=== PATIENT | female | born 2005 | race Caucasian/White ===

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

== ENCOUNTER 2024-01-02 12:20 | Emergency (ER) | payer SELFPAY ==
[2024-01-02 12:25] VITALS: BP 128/77; PULSE 83; RESP 17; TEMP 36.6; O2SAT 100; BMI 20.9
--- NOTE | 2024-01-02 12:32 | ED_ITS ---
HPI - Back Pain/Injury 2 General: Chief Complaint: Back Pain/Injury Stated Complaint: back pain Time Seen by Provider: 01/02/24 12:21 Source: patient Mode of arrival: ambulatory Limitations: no limitations History of Present Illness: Patient is a 18-year-old female presents to ED today believing she may have pulled a muscle to the right side of her back. 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 She states she worked on Tuesday and began noticing symptoms the following day on Tuesday. She states she has iced the area as well as applied heat and anti-inflammatories. She feels like pain is worse with movement and deep inhalation. She states she recently did have a URI but feels like she has fully recovered from that and is no longer having a cough. She has no chest pain or shortness of breath. She is not having any urinary symptoms. No abdominal pain. She arrives in no acute distress with stable vital signs. MD elicited complaint: back pain Onset (ago): day(s) Timing: constant Severity: moderate Similar Symptoms Previously: No Location: right upper back Radiation: none Exacerbating factors: movement and deep breaths Relieving factors: none Associated symptoms: Deny abdominal pain, dysuria, fever(s), nausea, syncope, urinary urgency or vomiting Treatments prior to arrival: cold therapy, heat therapy and NSAIDS Work related injury: No Related Data Home Medications Medication Instructions Recorded Confirmed ibuprofen 200 mg tablet (Advil) 200 mg PO Q6H PRN Pain 01/02/24 01/02/24 naproxen sodium 220 mg tablet 220 mg PO BID PRN Pain 01/02/24 01/02/24 (Aleve) Previous Rx's Medication Instructions Recorded cyclobenzaprine 10 mg tablet 10 mg PO TID #14 tabs 01/02/24 Allergies Allergy/AdvReac Type Severity Reaction Status Date / Time No Known Allergies Allergy Verified 06/18/20 14:39 Review of Systems 2 Const: Denies: fever(s) Card: Denies: chest pain, palpitations, irregular heart rhythm, edema, swelling of feet/ankles, lightheadedness, syncope, pre-syncope, dyspnea on exertion, orthopnea, leg pain with exertion or acrocyanosis Resp: Reports: pain on inspiration; Denies: dyspnea, wheezing, hemoptysis or chest congestion GI: Denies: abdominal pain, nausea, vomiting or diarrhea : Denies: flank pain, difficulty voiding, dysuria, urinary frequency, urinary urgency or urinary hesitancy Musc: Reports: back pain; Denies: neck pain, extremity pain, extremity swelling, joint pain or joint swelling Skin/Breast: Denies: rash Neuro: Denies: headache(s), numbness in extremities, weakness in extremities, sensory changes or dizziness PFSH ED 2 PFSH: Family History Mother Cervical cancer Grandmother Cancer Paternal--lung cancer Thyroid disease Paternal Denies family history of Diabetes Ovarian cyst CAD (coronary artery disease) Clotting disorder Heart disease Hyperlipidemia Chronic kidney disease (CKD) Anesthesia complication Bleeding disorder Hypertension Stroke Social History Substance/Drug Use: never Physical Exam 2 Const: COMMON NORMALS: no acute distress, average body habitus, patient oriented x3, no limitations, healthy appearing, alert and well nourished G ENERAL APPEARANCE: cooperative Neck/C-Spine: COMMON NORMALS: full ROM Chest: COMMONS NORMALS: normal inspection of the chest and normal palpation of entire chest wall Resp: COMMON NORMALS: normal respiratory effort and clear to auscultation bilaterally AUSCULTATION: clear to auscultation bilaterally Cardio: COMMON NORMALS: regular rate and regular rhythm RATE: regular rate RHYTHM: regular rhythm GI: COMMON NORMALS: Normal to inspection, nondistended, normoactive bowel sounds present, Soft to palpation and non-tender PALPATION: Yes Soft to palpation : COMMON NORMALS: Yes no CVA tenderness BLADDER/KIDNEY EXAM: Yes no CVA tenderness Back/Pelvis: COMMON NORMALS: no CVA tenderness, thoracic and lumbar spine normal to inspection, no thoracic nor lumbar tenderness, thoraco-lumbar ROM normal and straight leg raise negative bilaterally PELVIS: Yes buttocks normal and No sciatic notch tenderness SACRUM: no tenderness COCCYX: no tenderness BACK IMAGE (FEMALE): 1. TTP Extremity: GENERAL: Yes normal exam except as noted Neuro: COMMON NORMALS: patient oriented x3 SENSORIUM/ORIENTATION: Yes alert Skin: COMMON NORMALS: no rashes or lesions noted GENERAL SKIN EXAM: no rashes or lesions noted Course 2 Vital Signs: Vital signs: Vital Signs Temperature 97.8 F 01/02/24 12:25 Pulse Rate 83 01/02/24 12:25 Respiratory Rate 17 01/02/24 12:25 Blood Pressure 128/77 01/02/24 12:25 Pulse Oximetry 100 01/02/24 12:25 Oxygen Delivery Me thod Room Air 01/02/24 12:25 MDM - Back Pain/Injury Medical Decision Making CXR and UA ordered to rule out other pathologies for her right sided back pain. These are unremarkable. Vital signs are stable. Patient will be treated with anti-inflammatories, ice/heat, and muscle relaxers. Return to ED precautions given. Otherwise she can follow-up with primary care. Medical Records I reviewed the patient's medical records. Labs I reviewed the patient's lab results. Radiology Impressions Chest X-Ray 01/02/24 12:40 IMPRESSION: Unremarkable portable chest. Laboratory Results Urine Color Yellow (Yellow) 01/02/24 13:28 Urine Appearance Clear (CLEAR) 01/02/24 13:28 Urine pH 6.0 (5-7) 01/02/24 13:28 Ur Specific [place] 1.035 (1.005-1.030) H 01/02/24 13:28 Urine Protein Negative (Negative) 01/02/24 13:28 Urine Glucose (UA) Negative (Normal) 01/02/24 13:28 Urine Ketones Negative (Negative) 01/02/24 13:28 Urine Blood Negative (Negative) 01/02/24 13:28 Urine Nitrate Negative (Negative) 01/02/24 13:28 Urine Bilirubin Negative (Negative) 01/02/24 13:28 Urine Urobilinogen 1.0 mg/dL (Negative) 01/02/24 13:28 Ur Leukocyte Esterase Negative (Negative) 01/02/24 13:28 Urine RBC 0-2 /hpf (0-2) 01/02/24 13:28 Urine WBC 0-5 /hpf (0-5) 01/02/24 13:28 Ur Squamous Epith Cells 0-5 /hpf (0-5) 01/02/24 13:28 Amorphous Sediment Not Reportable 01/02/24 13:28 Urine Bacteria None seen /hpf (NONE) 01/02/24 13:28 Hyaline Casts 0.81 /lpf 01/02/24 13:28 All radiology interpretation(s) finalized by discharge Discharge Plan Discharge Patient Disposition: Home Clinical Impression: Musculoskeletal back pain Condition: Stable Prescriptions: New cyclobenzaprine 10 mg tablet 10 mg PO TID Qty: 14 0RF No Action naproxen sodium [Aleve] 220 mg Tablet 220 mg PO BID PRN (Reason: Pain) ibuprofen [Advil] 200 mg Tablet 200 mg PO Q6H PRN (Reason: Pain) Discharge Orders: Discharge ED (Routine); Ordered 01/02/24 Ordered By: Evelin Jackson Patient Instructions: Thoracic Back Strain (ED) Activity Restrictions/Additional Instructions: As we discussed, you may continue to alternate ice and heat to the affected area as well as continue [id number] anti-inflammatory medication. You may take these along with Tylenol. You may take the muscle relaxers as needed. Please follow-up with your primary care provider in 1 to 2 weeks if symptoms do not seem to be improving. You may return to the emergency department at anytime for any worsening or concerning symptoms you may have. I hope you begin to feel better soon. Coding Level of Care Code ED Dial Brusher for Shaheen Cote
--- NOTE | 2024-01-02 12:40 | XR_ITS ---
WS: [id number] PORTABLE CHEST HISTORY: R back pain COMPARISON: None available. Foreign body artifacts project over the central lungs. Lungs are clear and well expanded. No pleural effusion or pneumothorax. Cardiac size: Normal. Mediastinum/Aorta: Normal mediastinum. No osseous abnormality seen. XR/XR chest 1V portable [id number] IMPRESSION: Unremarkable portable chest.
[2024-01-02] MEDS: orphenadrine 30 mg/mL Inj 2 mL 60 MG IM (13:42)
[2024-01-02] MEDS: ketorolac 60 mg/2 mL INJ IM (13:43)
[2024-01-02 13:48] LABS: Bilirubin Urine Negative (Negative); Blood Urine Negative (Negative); Glucose Urine UA Negative (Normal); Ketones Urine Negative (Negative); Leukocyte Esterase Urine Negative (Negative); Nitrate Urine Negative (Negative); Protein Urine Negative (Negative); Urine Appearance Clear (CLEAR); Urine Color Yellow (Yellow)
[2024-01-02 13:50] LABS: Add Urine Microscopic? YES; Bacteria Urine None Seen /hpf; Hyaline Casts Urine 0.81 /lpf; RBC Urine 0-2 /hpf (0-2); Squamous Epithelial Cell Urine 0-5 /hpf (0-5); WBC Urine 0-5 /hpf (0-5)
[2024-01-02 13:52] LABS: Specific Gravity, Urine 1.035 (1.005-1.030)
[2024-01-02 14:25] VITALS: BP 112/67; PULSE 69; RESP 16; O2SAT 100
== END 2024-01-02 14:12 | disposition home or self-care (01) ==
PROVIDERS: Emergency Provider Physician Assistant
DX: M54.89 Other dorsalgia (principal)
CPT/HCPCS: 71045; 81001; 96372; 99284; J1885; J2360